=== PATIENT | female | born 1945 | race Caucasian/White ===

== ENCOUNTER 2019-02-26 06:11 | Inpatient (IN) ==
[2019-02-20 14:52] LABS: Appearance,Urine CLEAR; Bacteria,Urine 0 /hpf (0); Bilirubin,Urine NEG (NEG); Color,Urine YELLOW; Culture Indicated,Urine NO; Glucose,Urine (UA) NEGATIVE (NEG); Ketones,Urine NEG (NEG); Leukocyte Esterase,Urine NEG /uL (NEG); Mucus,Urine FEW /hpf (0); Nitrate,Urine NEG (NEG); Protein,Urine NEG (NEG); Specific Gravity,Urine 1.021 (1.000-1.035); Urine Blood 0.2 mg/dL (<0.03); Urine RBC 4 /hpf (0-1); Urine Squamous Epithelial Cell 0 /hpf (0-4); Urine WBC 0 /hpf (0-4); Urobilinogen,Urine NEG (NEG)
[2019-02-20 15:19] LABS: Basophils # (Auto) 0 K/mcL (0.0-0.3); Basophils % (Auto) 0.7 % (0.0-2.0); Eosinophils # (Auto) 0.1 K/mcL (0.0-0.7); Eosinophils % (Auto) 2.1 % (0.0-7.0); Granulocytes % (Auto) 56.4 % (38.0-78.0); Hematocrit 41.3 % (36.0-48.0); Hemoglobin 13.5 g/dL (12.0-15.0); Lymphocytes # (Auto) 1.7 K/mcL (1.5-4.8); Mean Cell Volume 91.2 fL (80.0-100.0); Mean Corpuscular HGB Conc 32.8 g/dL (31.0-36.0); Mean Platelet Volume 9.1 fL (7.4-10.4); Monocytes # (Auto) 0.5 K/mcL (0.1-0.9); Monocytes % (Auto) 8.8 % (1.0-12.0); Platelet Count 235 K/mcL (140-440); RBC 4.53 M/mcL (4.00-5.20); Red Cell Distribution Width 12.7 % (11.5-14.5); WBC 5.3 K/mcL (4.5-11.0)
[2019-02-20 15:24] LABS: Blood Urea Nitrogen 21 mg/dl (8-23); Calcium 9.8 mg/dl (8.6-10.4); Carbon Dioxide 25 mmol/L (22-30); Chloride 105 mmol/L (96-108); Glomerular Filtration Rate 74; Glucose 83 mg/dL (70-105)
[~2019-02-26 06:11] MED LIST: ACETAMINOPHEN 500 MG TABLET PO SCH; CELECOXIB 200 MG CAPSULE PO SCH; IPRATROPIUM/ALBUTEROL 3 ML AMPUL.NEB NEB PRN; PREGABALIN 75 MG CAPSULE PO SCH; SCOPOLAMINE 1 PATCH PATCH TOPICAL PRN; ceFAZolin 2 GM in DEXTROSE 5% IN WATER 50 ML IV SCH; oxyCODONE 10 MG TAB.ER.12H PO SCH
[2019-02-26] MEDS ORDERED: DEXAMETHASONE 10 MG/ML VIAL ONE (09:10)
[2019-02-26] MEDS ORDERED: LIDOCAINE HCL/PF 100 MG/5 ML SYRINGE IV ONE (09:10)
[2019-02-26] MEDS ORDERED: ONDANSETRON 4 MG/2 ML VIAL ONE (09:10)
[2019-02-26] MEDS ORDERED: ePHEDrine 50 MG/ML AMPUL IV ONE (09:10)
[2019-02-26] MEDS ORDERED: MIDAZOLAM 5 MG/5 ML VIAL ONE (09:10)
[2019-02-26] MEDS ORDERED: SUCCINYLCHOLINE 20 MG/ML ML IV ONE (09:10)
[2019-02-26] MEDS ORDERED: PROPOFOL 200 MG/20 ML VIAL IV ONE (09:10)
[2019-02-26] MEDS ORDERED: fentaNYL 100 MCG/2 ML VIAL IV ONE (09:10)
[2019-02-26] MEDS ORDERED: LACTATED RINGERS 1,000 ML IV SCH (10:00)
[2019-02-26] MEDS ORDERED: ONDANSETRON 4 MG/2 ML VIAL IV PRN ×2 (10:00→10:44)
[2019-02-26] MEDS ORDERED: fentaNYL 100 MCG/2 ML VIAL IV PRN (10:00)
[2019-02-26] MEDS ORDERED: IPRATROPIUM/ALBUTEROL 3 ML AMPUL.NEB NEB PRN (10:00)
[2019-02-26] MEDS ORDERED: PROMETHAZINE 25 MG/ML VIAL IV PRN (10:00)
[2019-02-26] MEDS ORDERED: BENZOCAINE/MENTHOL 1 LOZENGE PO PRN ×2 (10:00→10:44)
[2019-02-26] MEDS ORDERED: diphenhydrAMINE 50 MG/ML VIAL IV PRN (10:00)
[2019-02-26] MEDS ORDERED: MEPERIDINE 25 MG/ML SYRINGE IV PRN (10:00)
[2019-02-26] MEDS ORDERED: LACTATED RINGERS 250 ML IV PRN (10:00)
[2019-02-26] MEDS ORDERED: FLUMAZENIL 0.1 MG/ML ML IV PRN (10:00)
[2019-02-26] MEDS ORDERED: NALOXONE HCL 0.4 MG/ML VIAL IV PRN (10:00)
[2019-02-26] MEDS ORDERED: MAGNESIUM HYDROXIDE 30 ML ORAL.SUSP PO PRN (10:44)
[2019-02-26] MEDS ORDERED: POLYETHYLENE GLYCOL 3350 17 GM PACKET PO PRN (10:44)
[2019-02-26] MEDS ORDERED: TRANEXAMIC ACID 1,000 MG/10 ML VIAL IV ONE (10:44)
[2019-02-26] MEDS ORDERED: KETOROLAC 15 MG/ML VIAL IV PRN (10:44)
[2019-02-26] MEDS ORDERED: FLEETS ADULT ENEMA PR PRN (10:44)
[2019-02-26] MEDS ORDERED: TEMAZEPAM 15 MG CAPSULE PO PRN (10:44)
[2019-02-26] MEDS ORDERED: BISACODYL 10 MG SUPP.RECT PR PRN (10:44)
[2019-02-26] MEDS ORDERED: HYDROmorphone 2 MG/ML VIAL IV PRN (10:44)
[2019-02-26] MEDS ORDERED: ACETAMINOPHEN 325 MG TABLET PO PRN (10:44)
--- NOTE | 2019-02-26 10:44 | Brief Operative Note ---
Date of procedure: 02/26/19 Pre-op diagnosis: left shoulder rca adn bicep tendonopathy Post-op diagnosis: same Procedure: left reverse tsa with bicep tenodesis Grafts/Implants: Yes Anesthesia: KATHERINE Surgeon: Luis M Mercado Author'S Agent: Thien Funk Estimated blood loss (cc): 100 Specimens Removed/Pathology: none sent Condition: stable Disposition: PACU
[2019-02-26] MEDS ORDERED: ACETAMINOPHEN 650 MG PO PRN (10:47)
[2019-02-26] MEDS ORDERED: GENTAMICIN SULFATE 800 MG/20 ML VIAL IR ONE (11:05)
--- NOTE | 2019-02-26 11:34 | XRay Report ---
CLINICAL INFORMATION: Post-Op Total Shoulder COMPARISON: None. FINDINGS: Total shoulder prostheses is anatomically aligned. No osseous abnormality. Soft tissue swelling seen as expected. IMPRESSION: Negative Interpreted and Authenticated by: Genaro Mendoza 02/26/19
--- NOTE | 2019-02-26 12:08 | Operative Note ---
DATE OF OPERATION: 02/26/2019 PREOPERATIVE DIAGNOSIS: Left shoulder rotator cuff arthropathy with severe arthritis and biceps tendinopathy. POSTOPERATIVE DIAGNOSIS: Left shoulder rotator cuff arthropathy with severe arthritis and biceps tendinopathy. PROCEDURE: Left reverse total shoulder with a biceps tenodesis using [place] components. SURGEON: Luis M Mercado MD BEAM MACHINE OPERATOR: Thien Funk PA-C. This provider's expertise and technical skill were required throughout the case. The PA assisted with preoperative coordination, intraoperative retraction, wound closure, dressing and splint application, as well as postoperative documentation and care coordination. DESCRIPTION OF PROCEDURE: The patient was brought to the operating room and put to sleep with general LMA. Once asleep, the patient had the left shoulder sterilely prepped and draped in the usual sterile fashion. A timeout was performed, and we confirmed the operative site. This confirmed a total shoulder. Preop antibiotics and tranexamic acid were given. Once this was done, we then proceeded with the case. We made a deltopectoral approach to the shoulder, placing Ioban over the skin. This revealed a severely arthritic shoulder releasing the subscap anteriorly, releasing the remnants of the biceps tendon. A biceps tenodesis was performed at this time using two stitches of #2 Ethibond and reattached to the major. We then subluxed the shoulder anteriorly, released the capsule inferiorly. We made our neck cut at the anatomical neck region. Once this was done, we then subluxed the head posteriorly and placed a central reamer after a 360 degree capsular and releasing the remnants of the biceps tendon and labrum. Once done, we then were able to place the pin centrally in the glenoid. A pin placed centrally in the glenoid with a 10 degree of inclination was placed. We then reamed up to the size 36, a 36 glenosphere was chosen. The metaglene was placed with a central screw measuring 36 mm, with good purchase. We were able to place 3 additional screws, which measured 20 mm, 32 mm and 36 mm. Once the cure and all were retightened, we then irrigated thoroughly and placed a 36 mm glenosphere with 2 mm of offset, 2 mm of the eccentricity. This was tapped into place and then we irrigated the humeral part and broached up to the size of 11. Once this was done, we were able to trial the components. This fit very well with a standard thickness poly. We irrigated once more and placed a small amount of cement distally given her quality of bone and then cemented the ingrowth component proximally with a standard thickness poly tapped into place. This was reduced and irrigated and it fit very nicely. She had full range of motion, very stable. We irrigated thoroughly and then closed the deltopectoral interval with #2 Vicryl and closed the skin with 2-0 Vicryl and adhesive closure. The patient tolerated this well without complication. A DonJoy sling was fitted and given to the patient. RBH:shira Job ID: [id number] Doc ID: [id number] Luis M Mercado MD
[2019-02-26] MEDS: 0.9 % SODIUM CHLORIDE 10 ML SYRINGE IV SCH ×2 (13:22→23:35)
[2019-02-26] MEDS: 0.45 % SODIUM CHLORIDE 1,000 ML IV SCH ×2 (14:35→23:51)
[2019-02-26] MEDS: ceFAZolin 1 GM VIAL IV SCH ×2 (16:24→23:52)
[2019-02-26] MEDS: DOCUSATE SODIUM 100 MG CAPSULE PO SCH (20:07)
[2019-02-26] MEDS ORDERED: SENNOSIDES 1 TABLET PO SCH (21:00)
[2019-02-26] MEDS: METHOCARBAMOL 750 MG TABLET PO PRN (21:23)
[2019-02-27] MEDS: HYDROcodone/APAP 10/325MG TABLET PO PRN ×2 (02:08→09:42)
[2019-02-27] MEDS: 0.9 % SODIUM CHLORIDE 10 ML SYRINGE IV SCH (05:02)
[2019-02-27] MEDS: METHOCARBAMOL 750 MG TABLET PO PRN (07:40)
--- NOTE | 2019-02-27 08:16 | Discharge Summary ---
Ortho Discharge - TSA - Patient Instructions Diet: Regular Diet Activity: activity as tolerated, weight bearing as tolerated Total Shoulder Protocol: Leave immobilizer in place except for bathing and ROM. Abduction pillow. Continue to wear sling until seen by physician. [place] Pendulum : These exercises use momentum produced by your body to move your shoulder joint. Bend your knees and shift your weight to your front leg, then back, allowing your arm to swing in the same directions. Using the same technique, alternately shift your weight between your right and left legs, allowing your arm to swing from side to side. These exercises are also performed in counterclockwise and clockwise circular motions. Typically these exercises are performed several times per day, for a set number repetitions or minutes, such as 20 times in a row or 5 minutes at a time. Dressing Care: Kobeel Ag - leave on for 5 days - Follow Up Plan Follow Up Appointments: Gregg Limon PA-C [Physician Set Up Mechanic Automatic Line] - 03/13/19 9:20 am Disposition: Home, Self-Care Prognosis: Good Rehab Potential: Good I certify that the patient requires SNF services: No Overall status at discharge: patient is progressing back to baseline - Orders For Discharge Prescriptions: HYDROcodone/APAP 10/325MG [[place] 10-325Mg] 10 - 20 mg PO Q4HP PRN #60 tab PRN Reason: Pain Level 3-6 Additional Discharge Orders: Physical Therapy at Discharge - TKA Location: None Selected Toilet Riser Discharge Order Location: None Selected Walker Location: None Selected
--- NOTE | 2019-02-27 08:19 | Orthopedic Progress Note ---
Subjective Patient information: Note initiated : 02/27/19 at 8:18 am Service Date, if different from initiated Date: [] Patient: Glory Mahajan 73 y/o F admitted on 02/26/19 for Left Reverse Total Shoulder with Bicep Tendon. Chief Complaint: [doing well and eating and minimal pain] Objective Vital signs: Vital Signs Temp Pulse Resp BP Pulse Ox 02/27/19 07:36 97.5 F 90 18 113/74 97 02/27/19 04:00 98.6 F 81 18 113/67 96 02/26/19 23:52 97.7 F 88 14 112/69 95 02/26/19 19:21 97.7 F 79 16 101/63 95 02/26/19 16:44 96 02/26/19 15:59 97.3 F 76 18 113/72 97 02/26/19 15:48 97.3 F 74 18 116/69 97 02/26/19 13:47 70 18 120/76 97 02/26/19 13:46 96.6 F L 71 20 118/77 97 02/26/19 12:55 96.7 F L 65 18 121/75 96 02/26/19 12:32 68 126/78 93 02/26/19 12:17 68 127/79 96 02/26/19 12:02 75 123/81 97 02/26/19 11:47 96.3 F L 70 12 131/82 94 02/26/19 11:43 97.5 F 70 20 135/76 96 02/26/19 11:28 80 17 123/73 97 02/26/19 11:13 97.4 F 71 13 110/71 99 02/26/19 11:08 62 16 121/74 97 02/26/19 11:03 62 14 114/68 100 02/26/19 10:58 96.9 F L 61 15 117/72 99 Intake and Output 02/26/19 02/27/19 02/27/19 21:59 05:59 13:59 Intake Total 1000 1000 Output Total 1550 1650 400 Balance -550 -650 -400 Intake: IV 1000 1000 Sodium Chloride 0.45% 1,000 ml 1000 @ 100 mls/hr IV .Q10H JULIO CESAR Rx#: [id number] Output: Void Amount 1550 1650 400 Other: Meal Dinner Percent of Meal Consumed 50% Feeding Ability Independent Urine Appearance Clear Clear Clear Urine Color Bright Yellow Pale Light Rose Urine Odor Normal Normal Weight 183 lb Intake & Output: Intake & Output 02/26/19 02/27/19 02/27/19 21:59 05:59 13:59 Intake Total 1000 1000 Output Total 1550 1650 400 Balance -550 -650 -400 Weight 183 lb Intake: IV 1000 1000 Sodium Chloride 0.45% 1,000 ml 1000 @ 100 mls/hr IV .Q10H [facility] Rx#: [id number] Output: Void Amount 1550 1650 400 Other: Meal Dinner Percent of Meal Consumed 50% Feeding Ability Independent Urine Appearance Clear Clear Clear Urine Color Bright Yellow Pale Light Rose Urine Odor Normal Normal Incision: Yes healing Incision clean and dry: Yes Dressing: Yes clean Weight bearing status: full Neurological exam IM: Yes neurovascular intact - Labs CBC & BMP: 02/20/19 11:46 02/20/19 11:46 Labs: 02/20/19 11:46 Hgb 13.5 Hct 41.3
[2019-02-27] MEDS ORDERED: PSYLLIUM HUSK 6 GM PACKET PO SCH (09:00)
[2019-02-27] MEDS: DOCUSATE SODIUM 100 MG CAPSULE PO SCH (09:43)
[2019-02-27] MEDS: 0.45 % SODIUM CHLORIDE 1,000 ML IV SCH (10:16)
== END 2019-02-27 12:18 | disposition home or self-care (01) | DRG 483 ==
LOC: MEDSUR 06:11
PROVIDERS: ADMIT Orthopaedic Surgery; ATTEND Orthopaedic Surgery

== ENCOUNTER 2024-07-31 14:53 | Inpatient (IN) ==
[2024-07-31] MEDS ORDERED: IOPAMIDOL 100 ML BOTTLE IV ONE (14:54)
[2024-07-31 16:04] LABS: Basophils # (Auto) 0.05 K/mcL (0.00-0.30); Basophils % (Auto) 0.7 % (0.0-2.0); Eosinophils # (Auto) 0.11 K/mcL (0.00-0.70); Eosinophils % (Auto) 1.5 % (0.0-7.0); Hematocrit 41.7 % (34.1-44.9); Hemoglobin 13.6 g/dL (11.2-15.7); Lymphocytes % (Auto) 33.3 % (15.5-49.0); Mean Cell Volume 94.6 fL (80.0-100.0); Mean Corpuscular HGB Conc 32.6 g/dL (31.0-36.0); Mean Platelet Volume 10.1 fL (8.8-12.5); Monocytes # (Auto) 0.79 K/mcL (0.10-0.90); Monocytes % (Auto) 10.5 % (1.0-12.0); Neutrophils % (Auto) 53.9 % (38.0-78.0); Platelet Count 223 K/mcL (140-440); RBC 4.41 M/mcL (3.59-5.38); Red Cell Distribution Width 12.7 % (11.5-14.5); WBC 7.5 K/mcL (4.5-11.0)
[2024-07-31 16:16] LABS: ALT/SGPT 25 U/L (<40); AST/SGOT 24 U/L (<32); Albumin 4.2 gm/dL (3.2-5.2); Albumin/Globulin Ratio 1.8 (1.0-2.3); Alkaline Phosphatase 67 U/L (39-117); Bilirubin,Total 0.5 mg/dL (0.1-1.0); Blood Urea Nitrogen 25 mg/dL (8-23); Calcium 9.5 mg/dL (8.6-10.4); Carbon Dioxide 24 mmol/L (22-30); Chloride 105 mmol/L (96-108); Globulin 2.4 gm/dL (2.2-3.7); Glomerular Filtration Rate 71; Glucose 88 mg/dL (70-105); Potassium 3.4 mmol/L (3.3-5.1); Sodium 142 mmol/L (133-145)
[2024-07-31] MEDS: ASPIRIN 81 MG TAB.CHEW CHEWED ONE (18:24)
[2024-07-31] MEDS: CLOPIDOGREL 300 MG TABLET PO ONE (18:24)
[2024-07-31] MEDS ORDERED: SENNOSIDES 1 TABLET PO PRN (22:05)
[2024-07-31] MEDS ORDERED: ONDANSETRON 4 MG/2 ML VIAL IV PRN (22:05)
[2024-07-31] MEDS ORDERED: MAGNESIUM SULFATE 2 GM/50 ML BAG IV PRN (22:05)
[2024-07-31] MEDS ORDERED: IPRATROPIUM/ALBUTEROL 3 ML AMPUL.NEB NEB PRN (22:05)
[2024-07-31] MEDS ORDERED: POTASSIUM CHLORIDE 20 MEQ TABLET PO PRN ×2 (22:05)
[2024-07-31] MEDS ORDERED: POLYETHYLENE GLYCOL 3350 17 GM PACKET PO PRN (22:05)
[2024-07-31] MEDS ORDERED: POTASSIUM CHLORIDE 40 MEQ in DEXTROSE 5% IN WATER 500 ML IV PRN (22:05)
[2024-07-31] MEDS ORDERED: METOCLOPRAMIDE 10 MG/2 ML VIAL IV PRN (22:05)
[2024-07-31] MEDS ORDERED: ACETAMINOPHEN 160 MG/5 ML ORAL.SOL PO PRN (22:05)
[2024-07-31 23:08] LABS: HDL Cholesterol 82 mg/dL (>40); LDL Cholesterol,Calculated 110 mg/dL (<100); Non-HDL Cholesterol 144 mg/dL (<130); Triglycerides 170 mg/dL (<150)
[2024-08-01] MEDS: 0.9 % SODIUM CHLORIDE 1,000 ML IV SCH (02:23)
[2024-08-01] MEDS: DOCUSATE SODIUM 100 MG CAPSULE PO SCH (02:23)
[2024-08-01] MEDS: ATORVASTATIN 40 MG TABLET PO SCH (02:23)
[2024-08-01 06:35] LABS: ALT/SGPT 21 U/L (<40); AST/SGOT 20 U/L (<32); Albumin 3.6 gm/dL (3.2-5.2); Albumin/Globulin Ratio 1.9 (1.0-2.3); Alkaline Phosphatase 58 U/L (39-117); Bilirubin,Direct < 0.2 mg/dL (0-0.3); Bilirubin,Total 0.5 mg/dL (0.1-1.0); Blood Urea Nitrogen 20 mg/dL (8-23); Calcium 8.8 mg/dL (8.6-10.4); Carbon Dioxide 22 mmol/L (22-30); Chloride 107 mmol/L (96-108); Globulin 1.9 gm/dL (2.2-3.7); Glomerular Filtration Rate 87; Glucose 92 mg/dL (70-105); Lactate Dehydrogenase 171 U/L (135-225); Phosphorous 4.3 mg/dL (2.5-4.5); Potassium 3.5 mmol/L (3.3-5.1); Sodium 141 mmol/L (133-145); Triglycerides 140 mg/dL (<150); Uric Acid 4.7 mg/dL (2.5-8.0)
[2024-08-01] MEDS: PANTOPRAZOLE 40 MG PACKET PO SCH (07:08)
[2024-08-01 08:11] VITALS: TEMP 97
[2024-08-01] MEDS: CLOPIDOGREL 75 MG TABLET PO SCH (09:23)
[2024-08-01] MEDS: ENOXAPARIN 40 MG/0.4 ML SYRINGE SQ SCH (09:23)
[2024-08-01] MEDS: ASPIRIN 81 MG TAB.CHEW CHEWED SCH (09:23)
[2024-08-01 11:05] VITALS: O2SAT 96
== END 2024-08-01 11:26 | disposition home or self-care (01) | DRG 66 ==
LOC: ED 14:53 → ICU 22:03
PROVIDERS: ADMIT Internal Medicine; ATTEND Internal Medicine